=== PATIENT | female | born 1975 | race Caucasian/White ===

== ENCOUNTER → 2025-06-23 | Outpatient (CLI) | payer OTHER, SELFPAY ==
--- NOTE | 2025-06-23 08:06 | BI_ITS ---
EXAM: SCRN MAMM (CAD)W/LG BILAT DATE: 06/23/2025 CLINICAL HISTORY: F, Age 49 y/o , SCREENING TECHNIQUE: SCRN MAMM (CAD)W/LG BILAT COMPARISON: None. This is a baseline study. FINDINGS: TISSUE DENSITY: There are scattered areas of fibroglandular density. Bilateral Breast Mammographic Findings: There are no suspicious masses, suspicious cluster of microcalcifications, architectural distortion or secondary signs of malignancy identified in either breast. Benign round microcalcifications are seen in both breasts. BI/SCRN MAMM (CAD)W/LG BILAT IMPRESSION: Benign screening mammogram. OVERALL FINAL ASSESSMENT BI-RADS 2: BENIGN RECOMMENDATION: Routine annual follow-up in 1 Year A letter with findings and recommendations will be mailed to the patient. Reading Location: [id number]
--- OUTSIDE RECORDS SUMMARY | 2025-06-23 10:40 | XMS RPT_ITS | CCD ---
Author Organization [facility] Inform ion Partnership [facility] Care Team Providers Care Manufacturing Engineer [employer] Name Role Phone SULTANA MATHEW MD Primary Care Physician MARY ANNE FAUST-CALLI Unavailable CASSIE CHIU MD Unavailable HARESH FAUST-PHI AMIN Unavailable Ayo RN, Jenna Unavailable Unavaila alden Yanez RN, Jailyn Unavailable Unavailable Unavailable Unavailable ANA RICHMOND Unavailable VASSAS DO, SHELLIE S Unavailable [phone] VASSAS DO, SHELLIE Attending Unavailable SULTANA MATHEW MD Primary Care Unavailable MARY ANNE FAUST-ALLI Mcfarland Unavailable Unav ailable ALLI NORTH NP Consulting Unavailab le PHI HUTSON NP Primary Care Unavailable PHI HUTSON QA MANAGER Admitting Unavailable PHI HUTSON QA MANAGER Attending Unavailable PROVIDER, UNKNOWN Consulting Unavailable PROVIDER, UNKNOWN Consulting Unavailable CASSIE CHIU Consulting Unavailable VASSAS, SHELLIE Admitting Unavailable VASSAS, SHELLIE Attending Unavailable VASSAS, SHELLIE Primary Care Unavailable PROVIDER, UNKNOWN Consulting Unavailable PROVIDER, UNKNOWN Consulting Unavailable PROVIDER, UNKNOWN Consulting Unavailable VASSAS, SHELLIE Admitting Unavailable ALLI NORTH NP Consulting Unavailab le VASSAS, SHELLIE Attending Unavailable VASSAS, SHELLIE Primary Care Unavailable PROVIDER, UNKNOWN Consulting Unavailable PROVIDER, UNKNOWN Consulting Unavailable PHI HUTSON QA MANAGER Admitting Unavailable PHI HUTSON QA MANAGER Attending Unavailable PHI HUTSON QA MANAGER Primary Care Unavailable VASSAS, SHELLIE Admitting Unavailable ALLI NORTH NP Consulting Unavailab le VASSAS, SHELLIE Attending Unavailable VASSAS, SHELLIE Primary Care Unavailable PROVIDER, UNKNOWN Consulting Unavailable PROVIDER, UNKNOWN Consulting Unavailable VASSAS, SHELLIE Admitting Unavailable ALLI NORTH QA MANAGER Consulting Unavailab le VASSAS, SHELLIE Attending Unavailable VASSAS, SHELLIE Primary Care Unavailable PROVIDER, UNKNOWN Consulting Unavailable PROVIDER, UNKNOWN Consulting Unavailable SULTANA MATHEW MD Primary Care Unavailable WINNIES DO, SHELLIE Attending Unavailable JACQUELYN DE LEON Unavailable [phone] Dacia Hutson Unavailable Unavailable Lashae VSC, Kasandra Referring Unavailable Lashae VSC, Kasandra Attending Unavailable Lashae VSC, Kasandra Primary Care Unavailable Medications Current Medications Medication Drug Class(es) Dates Sig (Normalized) Sig (Original) ALPRAZolam 0.5 mg oral tablet (6 sources) Benzodiazepine Start: 04-30-2025 Xanax 0.5 mg tablet ; 1 (one) tablet po BID x30 days for 30 days Quantity: 60 {Tablet} Refills: 2 Ordered: 30-Apr-2025 HARSHA MORALES Start: 30-Apr-2025 Start: 04-30-2025 Xanax 0.5 mg t ablet ; 1 (one) tablet po BID x30 days for 30 days Quantity: 60 {Tablet} Refills: 2 Ordered: 30-Apr-2025 HARSHA MORALES Start: 30-Apr-2025 Start: 04-30-2025 Xanax 0.5 mg t ablet ; 1 (one) tablet po BID x30 days for 30 days Quantity: 60 {Tablet} Refills: 2 Ordered: 30-Apr-2025 HARSHA MORALES Start: 30-Apr-2025 Start: 03-24-2025 Xanax 0.25 mg tablet ; 1 (one) tablet TID prn anxiety for 30 days Quantity: 90 {Tablet} Refills: 2 Ordered: 24-Mar-2025 HARSHA MORALES Start: 24-Mar-2025 Ascorbic Acid (2 sources) Vitamin C Start: 11-18-2022 Vitamin C qDay , 0 Refill(s) Start Date: 11/18/22 Status: Ordered 24 hr buPROPion hydrochloride 150 mg extended release oral tablet (5 sources) Aminoketone Start: 04-16-2025 take 1 tablet by mouth once daily Wellbutrin XL 150 mg 24 hr tablet, extended release ; 1 (one) tablet po daily for 30 days Quantity: 30 {Tablet} Refills: 2 Ordered: 30-Apr-2025 LASHANDA Yanez Start: 16-Apr-2025 ferrous sulfate 325 mg oral tablet (1 source) Start: 04-12-2023 IRON (ferrous sulfate 325 mg) 65 mg oral tablet Dose : 325 mg = 1 tab(s), Oral, qDay, Take with food., # 60 tab(s), 3 Refill(s) Start Date: 04/12/23 Status: Ordered imiquimod 50 mg/ml topical cream (1 source) Start: 04-12-2023 Aldara 5% topi cinthya cream Apply 1 alyssa, Topical, 2x/Wk, # 12 EA, 1 Refill(s), Pharmacy: [facility], Cream, 160, cm, 04/12/23 8:59:00 EDT, Height, 71.2 Start Date: 04/12/23 Status: Ordered Multivitamin preparation (1 source) Start: 04-12-2023 take 1 tablet by mouth once daily Multivitamin Dose = 1 tab(s), Oral, Daily, 0 Refill(s) Start Date: 04/12/23 Status: Ordered norethindrone acetate 5 mg oral tablet (1 source) Start: 04-12-2023 Aygestin 5 mg oral tablet Dose : 5 mg = 1 tab(s), Oral, qDay, May take 2 a day, # 56 tab(s), 1 Refill(s), Pharmacy: [facility], Menorrhagia Mild anemia, 160, cm, 04/12/23 8:59:00 EDT, Height Start Date: 04/12/23 Status: Ordered progesterone 200 mg oral capsule (1 source) Progesterone Start: 04-12-2023 take 1 capsule by mouth once daily progesterone 200 mg oral capsule TAKE ONE CAPSULE BY MOUTH EVERY DAY FOR FOURTEEN DAYS. START ON THE OF EVERY MONTH Start Date: 04/12/23 Status: Ordered Completed/Discontinued Medications Medication Drug Class(es) Dates Sig (Normalized) Sig (Original) amoxicillin 875 mg / clavulanate 125 mg oral tablet (12 sources) Penicillin-class Antibacterial Start: 05-28-2024 End: 06-07-2024 amoxicillin 875 mg-potassium clavulanate 125 mg tablet ; 1 (one) tablet two times daily for 10 days Quantity: 20 {Tablet} Refills: 0 Ordered: 10-Jun-2024 IVA HUTSON Start: 28-May-2024 End: 07-Jun-2024 Status: Inactive FLUoxetine 10 mg oral tablet (6 sources) Serotonin Reuptake Inhibitor Start: 03-24-2025 End: 04-30-2025 take 1 tablet by mouth once daily FLUoxetine 10 mg tablet ; 1 (one) tablet po daily for 30 days Quantity: 30 {Tablet} Refills: 5 Ordered: 30-Apr-2025 LASHANDA Yanez Start: 24-Mar-2025 End: 30-Apr-2025 Status: Inactive Problems Active Problems Problem Classification Problem Date Documented Date Episodic/Chronic Abdominal pain (20 sources) Left lower quadrant pain; Translations: [Left lower quadrant pain] Episodic Comment on above: CT scan 05/27/24; Ext ensive diverticulosis involving transverse to sigmoid colon; May also represent early diverticulitis. Low attenuation lesion at the fundus of the uterus- likely a fibroid (1.2 x 2 cm) Administrative/socia l admission (20 sources) Patient encounter status; Translations: [Counseling, unspecified] 12-01-2021 Episodic Anxiety disorders (20 sources) Mixed anxiety and depressive disorder; Translations: [Anxiety disorder, unspecified] 03-24-2025 Chronic Comment on above: 03/24/25: GAD7: 15; P HQ9: 20 Conditions associated with dizziness or vertigo (1 source) Dizziness and giddiness; Translations: [Dizziness and giddiness] Episodic Deficiency and other anemia (1 source) Anemia; Translations: [Anemia, unspecified] Episodic Esophageal disorders (20 sources) Gastroesophageal reflux disease without esophagitis; Translations: [Gastro-esophageal reflux disease without esophagitis] 12-01-2021 Chronic Menstrual disorders (1 source) Irregular menstruation, unspecified; Translations: [Irregular menstruation, unspecified] Onset: 07-05-2024 Chronic Other female genital disorders (1 source) Abnormal uterine bleeding; Translations: [Abnormal uterine and vaginal bleeding, unspecified] Chronic Other female genital disorders (3 sources) Other specified abnormal uterine and vaginal bleeding; Translations: [Other specified abnormal uterine and vaginal bleeding] Onset: 08-09-2024 Chronic Other female genital disorders (20 sources) Enlarged uterus; Translations: [Hypertrophy of uterus] 05-24-2024 Episodic Comment on above: Had Pelvic u/s in with no acute abn.Low attenuation lesion at hte fundus of the uterus- likely a fibroid (1.2 x 2 cm) Had Pelvic u/s in with no acute abn.CT 05/29 shows Low attenuation lesion at the fundus of the uterus- likely a fibroid (1.2 x 2 cm) Other screening for suspected conditions (not mental disorders or infectious disease) (1 source) Encounter for screening mammogram for malignant neoplasm of breast; Translations: [Encounter for screening mammogram for malignant neoplasm of breast] Onset: 06-19-2025 Episodic Other skin disorders (1 source) Eruption; Translations: [Rash and other nonspecific skin eruption] Episodic Residual codes; unclassified (20 sources) Family history of cancer of colon; Translations: [Family history of malignant neoplasm of digestive organs] 12-01-2021 Episodic Past or Other Problems Problem Classification Problem Date Documented Da te Episodic/Chronic Unclassified (17 sources) Abdominal Pain, Female - Symptoms include abdominal pain, diarrhea (sometimes) and missed menstrual period (LMP 5-4-24). The pain is located in the mid abdominal area. The pain radiates to the left flank. The patient describes the pain as sharp (at times). Onset was month(s) ago. There is no known event that preceded symptom onset. The symptoms occur intermittently. The patient describes this as worsening. Associated symptoms do not include fever or dysuria. The last menstrual period began 5--24. Note for Abdominal pain: pt usually has regular periods and last one was 5-4-24. Concerned about possible kidney stone. 05-24-2024 Unclassified (17 sources) Abdominal Pain, Female - Symptoms include abdominal pain, while symptoms do not include nausea, vomiting or diarrhea. The pain is located in the mid abdominal area (to the left abd area). The pain radiates to the left flank. Onset was 1 month(s) ago. Note for Abdominal pain: Pt describes the pain a constant dull burning and will get severe attacks. Has a lot of gas and did have one episode where she felt like vomiting. 12-01-2021 Unclassified (14 sources) !Patient notification of lab results - Phi Hutson [facility]-. The test(s) that you had done were/was a CT scan. Note for !Patient notification of lab results : Your CT scan showed that you have a likely fibroid in your uterus, which could be part of the cause of your abdominal pain. For this issue you should see a toggler, and we'd be happy to set up an appointment for you. Additionally, the CT scan showed that you have diverticulosis. Diverticulosis occurs when small defects in the muscle of the wall of the large intestine or colon allow small pockets or pouches (diverticula) to form. Diverticulitis is infection or inflammation of these abnormal pouches. There was a possibility of early diverticulitis (infection/inflammation). If you are still experiencing symptoms, I will send a prescription for antibiotics in for you. Additionally,if you continue to have pain, try eating only a liquid diet for the next 3-5 days, and then you can advance your diet to soft or regular if you can tolerate it. You should also see a cut out worker to have a colonoscopy done to evaluate this further. If you are willing to do this, we will set up the referral for you. 05-28-2024 Unclassified (6 sources) Anxiety - The onset of the anxiety has been acute and has been occurring in a persistent pattern for 2 months. The course has been constant. The anxiety is characterized as expectant dread, sinking feeling and nervousness. Precipitating factors include specific circumstances. The symptoms have been associated with anorexia and nausea, while the symptoms have not been associated with breathlessness, chest pain, diarrhea, dizziness or suicidal thoughts. Note for Anxiety: She notes that her had a seizure about 2 months ago and then again recently. They don't have alot of answers about what is going on. She has started having this shakey feeling, she can't sleep. She has poor appetite. She just doesn't feel well. Her daughter's wedding is at her house in the next 2wks which adds to her stress. She feels she needs something to help the shakiness and help her sleep. She notes she has never had anything like this before. 03-24-2025 Unclassified (4 sources) Anxiety - Note for Anxiety: Pt was seen 5/19/25 and started on Fluoxetine and Xanax. She did not feel well on the Fluoxetine and was switched to Wellbutrin. She was feeling better just on the Xanax so she has not started the Wellbutrin yet. 04-30-2025 Results Test Name Value Interpretation Reference Range Facility Final Surgical Pathology Rep romelia 08-27-2024 Final Surgical Pathology Report . Pathology Reports Accession: Collected Date/Time: Received Date/Time: Pathologist: [id number] 08/23/2024 08:55 EDT 08/26/2024 08:53 EDT MD MOE OLIVEIRA Final Surgical Pathology Report DIAGNOSIS: UTERUS, CERVIX, BILATERAL FALLOPIAN TUBES AND DETACHED RIGHT OVARY: - CERVIX -MILD ACUTE AND CHRONIC INFLAMMATION WITH NABOTHIAN CYSTS - ENDOMETRIUM -SESSILE ENDOMETRIAL POLYP - MYOMETRIUM -LEIOMYOMAS - RIGHT OVARY -LUTEAL CYST AND FOLLICULAR CYSTS - FALLOPIAN TUBE -NO SPECIFIC PATHOLOGIC CHANGES COMMENT: [facility]#[id number] CLINICAL INFORMATION: DUB, UTERINE FIBROID SPECIMEN: A RIGHT OVARY TUBES AND UTERUS GROSS DESCRIPTION: All parts labelled with patient name and [id number] Received in formalin labelled uterus, cervix, bilateral fallopian tubes and detached right ovary , Weight/dimensions - 162 g and measures 11 cm (fundus to cervix), 5.5 cm (cornu to cornu), asymmetrical 5.7 cm (anterior to posterior). Serosa - camejo with anterior and posterior nodularity. Cervix/endocervix - 4 cm in diameter and 5 cm in length. At the anterior peritoneal reflection is an area of scarring. Endometrium - triangular-shaped endometrial cavity measuring 2.5 x 3.5 cm, endometrium lining is remarkable for an anterior endometrial polyp measuring 0.6 x 0.5 cm. Myometrium - camejo-pink measuring up to 3 cm with multiple white whorled well-circumscribed subserosal and intramural nodules ranging from 1 x 1 x 1 cm up to 1.8 x 1.8 x 1.8 cm. Right fallopian tube- 4 x 0.6 cm Right ovary - partially collapsed camejo-batres ovary measuring 3 x 2.2 x 1.5 cm, cut surface appears unremarkable. Left fallopian tube - 4 x 0.5 cm RS-7 Cassette Summary: A1 - Cervix A2 - Anterior endomyometrium A3 - Posterior endomyometrium A4 - Anterior and posterior white whorled nodule A5 - Right fallopian tube A6 - Right ovary A7 - Left fallopian tube Maria R [place], Pathologists' Family Readiness Support Assistant (ASCP) Performed by MARIA R CAMPOS MICROSCOPIC DESCRIPTION: The microscopic examination is performed, except in the case of Gross Only. Pathology Reports Accession: Collected Date/Time: Received Date/Time: Pathologist: [id number] 08/23/2024 08:55 EDT 08/26/2024 08:53 EDT MD ROXANNE MOE Electronically Signed by Pathology Report verified by [facility] MOE OLIVEIRA MD Sign out Date: 08/27/2024 11:17 Performing Lab: [facility], [address] [place] [address] Pathology Dept Disclaimer If ancillary studies were utilized, the following Laboratory Developed Test (LDT) disclaimer will apply: Under CLIA requirements, [facility] is qualified to perform high complexity testing. For all ancillary stains, positive and negative controls stain appropriately. Performance characteristics of immunohistochemical and chromogenic in-situ hybridization tests have been determined by [facility]. These tests are used for clinical purposes, They should not be regarded as investigational or for research. Normal [facility] HEMATOCRITon 08-23-2024 Hematocrit (Bld) [Volume fraction] 34.0 % Normal 34.0 - 46.0 % [facility], [employer] [facility], [employer]. Work Phone: Comment on above: Performed By: #### 2 [id number] #### [facility],[address] [place], [place] [id number] HEMOGLOBINon 08-23-2024 Hemoglobin (Bld) [Mass/Vol] 11.0 g/dL Abnormal 12.0 - 16.0 g/dL [facility], [employer].; [employer] [facility] [employer], [employer]. Work Phone: Comment on above: Performed By: #### 2 [id number] #### [facility],[address] [place] [address] No Panel Informationon 08-23 Observation duration YES Normal [facility] [employer] [facility]. Work Phone: UR Negative Normal [facility]. Work Phone: URINEon 08-23-2024 Beta HCG ( test) Ql (U) Negative Normal NEGATIVE [facility] Comment on above: Performed By: #### 2 [id number] #### [facility],[address] [place] [address] EXTERNAL QC DONE? YES Normal [facility] Comment on above: Performed By: #### 2 [id number] #### [facility],[address] [place] [address] INTERNAL QC PASS Normal [facility].; [facility]. Work Phone: Comment on above: Performed By: #### 2 [id number] #### [facility],[address] [place], [place] [id number] BMP with eGFRon 08-09-2024 AGE 48 years Normal [facility] Comment on above: Performed By: #### 2 [id number] #### [facility],[address] [place] [address] Anion gap [Moles/Vol] 11 mmol/L Normal 10 - 2 0 mmol/L [facility].; [facility]. Work Phone: Comment on above: Performed By: #### 2 [id number] #### [facility],[address] [place] [address] BMP with eGFR Normal [facility] Comment on above: Result Comment: BASI C METABOLIC PANEL Performed By: #### 2 08772 #### [facility],[address] [place] [address] Calcium [Mass/Vol] 9.0 mg/dL Normal 8.5 - 10. 1 mg/dL [facility].; [facility]. Work Phone: Comment on above: Performed By: #### 2 64048 #### [facility],[address] [place] [address] Chloride [Moles/Vol] 104 mmol/L Normal 98 - 10 7 mmol/L [facility], [employer]. Work Phone: Comment on above: Performed By: #### 2 53898 #### [facility],[address] [place] [address]651 CO2 [Moles/Vol] 24.0 mmol/L Normal 21.0 - 32.0 mmol/L [facility], [employer]. Work Phone: Comment on above: Performed By: #### 2 47939 #### [address] [address] Creatinine [Mass/Vol] 0.59 mg/dL Normal 0.55 - 1.02 mg/dL [facility], [employer]. Work Phone: Comment on above: Performed By: #### 2 70141 #### [facility],[address] [place] [address] GFR/1.73 sq M.predicted among non-blacks MDRD (S/P/Bld) [Vol rate/Area] mL/min/{1.73_m2} Normal 60 - 999 [facility] Comment on above: Performed By: #### 2 08516 #### [facility],[address] [place] [address] Result Comment: ACCO RDING TO THE NATIONAL KIDNEY DISEASE EDUCATION PROGRAM(NKDE), A NORMAL eGFR IS A VALUE GREATER THAN OR EQUAL TO 60 ML/MIN/1.73 SQ METERS. CHRONIC KIDNEY DISEASE: <60mL/MIN/1.73 SQ METERS KIDNEY FAILURE: <15mL/MIN/1.73 SQ METERS THIS TEST SHOULD ONLY BE USED FOR PATIENTS 18 YEARS OF AGE AND OLDER. Glucose [Mass/Vol] 73 mg/dL Abnormal 74 - 106 mg/dL [facility], [employer].; [facility], [employer] Work Phone: Comment on above: Performed By: #### 2 99399 #### [facility],[address] [place] [address] Potassium [Moles/Vol] 3.3 mmol/L Abnormal 3.5 - 5.1 mmol/L [facility], [facility].; [place] - [facility], [facility] Work Phone: Comment on above: Performed By: #### 2 [id number] #### [facility],[address] [place] [address] Sodium [Moles/Vol] 136 mmol/L Normal 136 - 145 mmol/L [facility], [facility].; [facility], [employer] Work Phone: Comment on above: Performed By: #### 2 74676 #### [facility],[address] [place] [address]051 Urea nitrogen [Mass/Vol] 9 mg/dL Normal 7 - 18 mg/dL [facility], [facility].; [facility], [employer] Work Phone: Comment on above: Performed By: #### 2 [id number] #### [facility],[address] [place] [address]168 CBC + DIFFon 08-09-2024 Baso # 0.03 x10EE3/UL Normal 0.00 - 0.10 [facility] Comment on above: Performed By: #### 2 [id number] #### [address] [address] Basophils/100 WBC (Bld) 0.7 % Normal 0.0 - 2.0 % [facility], [facility].; [facility], [employer] Work Phone: Comment on above: Performed By: #### 2 76135 #### [facility],[address] [place] [address]15 CBC + DIFF Normal [facility] Comment on above: Result Comment: CBC- COMPLETE BLOOD COUNT Performed By: #### 2 62688 #### [facility],[address] [place] [address]900 EO # 0.12 x10EE3/UL Normal 0.00 - 0.50 [facility] Comment on above: Performed By: #### 2 53892 #### [facility],[address] [place] [address]140 Eosinophils/100 WBC (Bld) 2.7 % Normal 0.0 - 7.0 % [facility], [facility], [facility] Work Phone: Comment on above: Performed By: #### 2 42957 #### [place] [id number] Erythrocyte distribution width (RBC) [Ratio] 13.4 % Normal 12.0 - 15.6 % [facility], [facility] [place] [facility], [employer] Work Phone: Comment on above: Performed By: #### 2 [id number] #### [address] [address] Hematocrit (Bld) [Volume fraction] 36.0 % Normal 34.0 - 46.0 % [facility], [facility] [place] - [facility], [facility] Work Phone: Comment on above: Performed By: #### 2 04375 #### [facility],[address] [place] [address] Hemoglobin (Bld) [Mass/Vol] 11.9 g/dL Abnormal 12.0 - 16.0 g/dL [facility], [facility].; [facility], [facility] Work Phone: Comment on above: Performed By: #### 2 08171 #### [facility],[address] [place] [address] Lymph # 1.62 x10EE3/UL Normal 0.80 - 2.80 [facility] Comment on above: Performed By: #### 2 51194 #### [facility],[address] [place] [address] Lymphocytes/100 WBC (Bld) 38.2 % Normal 20.0 - 45.0 % [facility], [employer]. Work Phone: Comment on above: Performed By: #### 2 63330 #### [place] [address] MANUAL DIFF N/A Normal [facility].; [employer] [facility], [employer]. Work Phone: Comment on above: Performed By: #### 2 64574 #### [facility],[address] [place] [address] MCH (RBC) [Entitic mass] 28 pg Normal 27 - 33 pg [facility] [employer] [facility], [employer]. Work Phone: Comment on above: Performed By: #### 2 08202 #### [place] [address] MCHC 33 X10 3 Normal 32 - 36 [facility] Comment on above: Performed By: #### 2 50591 #### [place] [id number] MCV (RBC) [Entitic vol] 86 fL Normal 80 - 99 fL [facility], [employer]. Work Phone: Comment on above: Performed By: #### 2 48804 #### [place] [address] [place] # 0.23 x10EE3/UL Normal 0.20 - 1.00 [facility] Comment on above: Performed By: #### 2 81144 #### [facility],[address] [place] [address] MONOS % 5.5 % Normal 0.0 - 10.0 [facility] Comment on above: Performed By: #### 2 82556 #### [facility],[address] [place] [address] Morphology Félix (Bld) [Interp] N/A Normal [facility].; [facility], [facility]. Work Phone: Comment on above: Performed By: #### 2 83827 #### [facility],[address] [place] [address] Neut # 2.24 x10EE3/UL Normal 1.50 - 7.10 [facility] Comment on above: Performed By: #### 2 12521 #### [facility],[address] [place], [place] [id number] Neutrophils/100 WBC (Bld) 52.9 % Normal 46.0 - 76.0 % [facility].; [facility], [facility]. Work Phone: Comment on above: Performed By: #### 2 74587 #### [address] [address] PLATELET 195 x10EE3/UL Normal 150 - 450 [facility] Comment on above: Performed By: #### 2 77504 #### [facility],[address] [place] [address] Platelet mean volume (Bld) [Entitic vol] 8.8 fL Normal 6.6 - 10.5 fL [facility].; [facility], [facility]. Work Phone: Comment on above: Result Comment: AUTO MATED DIFFERENTIAL Performed By: #### 2 44537 #### [facility],[address] [place] [address] RBC 4.20 x 10EE6/UL Normal 4.10 - 5.30 [facility] Comment on above: Performed By: #### 2 53053 #### [facility],[address] [place] [address] WBC 4.2 x 10EE3/UL Low 4.5 - 10.8 [facility] Comment on above: Performed By: #### 2 30382 #### [facility],[address] [place] [address] Laboratory - Chemistry and C hemistry - challengeon 08-09-2024 GFR/1.73 sq M.predicted among blacks MDRD (S/P/Bld) [Vol rate/Area] mL/min/{1.73_m2} Normal 60 - 999 {ML/MINUTE} [employer] [facility] [employer] [facility] [employer] [facility]. Work Phone: GFR/1.73 sq M.predicted MDRD (S/P/Bld) [Vol rate/Area] mL/min/{1.73_m2} Normal 60 - 999 {ML/MINUTE} [employer] [facility].; [employer] [facility] [employer] [facility]. Work Phone: Laboratory - Hematology and Cell countson 08-09-2024 Basophils (Bld) [#/Vol] 0.03 {x10EE3/UL} Normal 0.00 - 0.10 {x10EE3/UL} [employer] [facility] [employer] [facility]. Work Phone: Eosinophils (Bld) [#/Vol] 0.12 {x10EE3/UL} Normal 0.00 - 0.50 {x10EE3/UL} [employer] [facility] [employer]. Work Phone: Lymphocytes (Bld) [#/Vol] 1.62 {x10EE3/UL} Normal 0.80 - 2.80 {x10EE3/UL} [facility]. Work Phone: MCHC (RBC) [Mass/Vol] 33 {X10_3} Normal 32 - 3 6 {X10_3} [facility]. Work Phone: Monocytes (Bld) [#/Vol] 0.23 {x10EE3/UL} Normal 0.20 - 1.00 {x10EE3/UL} [facility].; [facility]. Work Phone: Monocytes/100 WBC (Bld) 5.5 % Normal 0.0 - 10.0 % [facility].; [facility]. Work Phone: Neutrophils (Bld) [#/Vol] 2.24 {x10EE3/UL} Normal 1.50 - 7.10 {x10EE3/UL} [facility]. Work Phone: Platelets (Bld) [#/Vol] 195 {x10EE3/UL} Normal 150 - 450 {x10EE3/UL} [facility]. Work Phone: RBC (Bld) [#/Vol] 4.20 {x_10EE6/UL} Normal 4.10 - 5.30 {x_10EE6/UL} [facility].; [facility]. Work Phone: WBC (Bld) [#/Vol] 4.2 {x_10EE3/UL} Abnormal 4.5 - 10.8 {x_10EE3/UL} [facility], [facility]. Work Phone: No Panel Informationon 08-09 AGE 48 {years} Normal [facility], [facility] Work Phone: BMP with eGFR Normal [facility], [facility] Work Phone: CBC + DIFF Normal [facility].; [facility], [facility] Work Phone: Final Surgical Pathology Rep romelia 07-10-2024 Final Surgical Pathology Report . Pathology Reports Accession: Collected Date/Time: Received Date/Time: Pathologist: [id number] 07/05/2024 10:41 EDT 07/09/2024 09:54 EDT WYATT RODRÍGUEZ MD Final Surgical Pathology Report DIAGNOSIS: ENDOMETRIAL CURETTINGS: - SMALL BENIGN ENDOMETRIAL POLYP - BACKGROUND ENDOMETRIUM WITH DISORDERED PROLIFERATIVE FEATURES, SEE COMMENT Comment: In areas, the background endometrium shows glandular architectural distortion; the possibility of early simple endometrial hyperplasia without atypia cannot be excluded. Follow-up and rebiopsy recommended. No evidence of malignancy. CLINICAL INFORMATION: IRREGULAR MENSES Procedure: ENDOMETRIAL BX SPECIMEN: A ENDOMETRIUM GROSS DESCRIPTION: All parts labelled with patient name and [id number] Received in formalin labeled undesignated are multiple camejo-pink and hemorrhagic tissue fragments aggregating 4.3 x 1.4 x 0.9 cm. TS-3 Tiffanie Duff, Grossing Glaze Carrier/ Dr. Dante Magdaleno, Pathologist Performed by Tiffanie Duff MICROSCOPIC DESCRIPTION: The microscopic examination is performed, except in the case of Gross Only. Electronically Signed by Pathology Report verified by [facility] WYATT RODRÍGUEZ Sign out Date: 07/10/2024 09:14 Performing Lab: [facility], [address] [place] [address] Pathology Dept Disclaimer If ancillary studies were utilized, the following Laboratory Developed Test (LDT) disclaimer will apply: Under CLIA requirements, [facility] is qualified to perform high complexity testing. For all ancillary stains, positive and negative controls stain appropriately. Performance characteristics of immunohistochemical and chromogenic in-situ hybridization tests have been determined by [facility]. These tests are used for clinical purposes, They should not be regarded as investigational or for research. Normal [facility] ([place]) CT ABDOMEN/PELVIS Won 2023 CT ABDOMEN/PELVIS [place] [address] Patient: JAKOB HUTSON Phone#: : [phone] Age: 48 Gender: F Pt. Type: Out Account: [id number] Location: Ordering: PHI HUTSON Exam Date: 05/27/2024/14:32 Family Phys: Charge Code: [id number] Physician: Mellette Order #: [id number] Dose#: 12.00 PROCEDURE: CT ABDOMEN/PELVIS WITH CONTRAST COMPARISON: None. INDICATIONS: Abdominal pain, acute. TECHNIQUE: After obtaining the patient's consent, CT images were created with non-ionic intravenous contrast and oral contrast material. All CT scans at this facility use dose modulation, iterative reconstruction, and/or weight based dosing when appropriate to reduce radiation dose to as low as reasonably achievable. IV CONTRAST: Omnipaque 350,80ml TOTAL DOSE: 12.00 CTDIvol(mGy) FINDINGS: LIVER: There is a cyst in the left lobe measuring 1.9 x 2.2 cm. Low-attenuation adjacent to the falciform ligament nonspecific but most often represents focal fatty infiltration. No enlargement, atrophy, or significant focal lesion. BILIARY: Gallbladder is present. PANCREAS: Normal. No lesion, fluid collection, ductal dilatation, or atrophy. SPLEEN: Normal. No enlargement or focal lesion. KIDNEYS: Kidneys enhance and excrete contrast symmetrically. No hydronephrosis. ADRENALS: Normal. No mass or enlargement. AORTA/VASCULAR: No aortic aneurysm. RETROPERITONEUM: Normal. No mass or adenopathy. BOWEL/MESENTERY: There is diverticulosis of the transverse, descending and sigmoid colon. There there is mild stranding surrounding the distal descending colon. No free fluid. No free air. No loculated fluid collection. No bowel obstruction or dilatation. No significant stool burden. Oral contrast is present in the stomach and small bowel. The appendix is unremarkable in size. ABDOMINAL WALL: Small fat containing umbilical hernia URINARY BLADDER: Normal. No visible focal wall thickening, lesion, or calculus. PELVIC NODES: Normal. No adenopathy. Continued Report - Page 2 of 2 Patient: JAKOB HUTSON Phone#: : 1975 Age: 48 Gender: F Pt. Type: Out Account: [id number] Location: Ordering: PHI HUTSON Exam Date: 05/27/2024/14:32 Family Phys: Charge Code: [id number] Physician: Mellette Order #: [id number] Dose#: 12.00 PELVIC ORGANS: Low-attenuation lesion at the fundus of the uterus most likely represents a fibroid, measures 1.2 x 2.0 cm. There is a physiologic cyst in the right ovary measuring 3.9 x 2.3 cm. BONES: Normal. No bony lesion or fracture. LUNG BASES: Normal. No visible pulmonary or pleural disease. OTHER: Negative. CONCLUSION: 1. Extensive diverticulosis involving the transverse to sigmoid colon. Mild stranding adjacent to the distal descending colon. In the appropriate clinical setting may represent early diverticulitis. This report was communicated by telephone to Dr. Reyes Chiu at the dictation time shown below. Dictated by: Francoise Javed MD on 05/27/2024 at 17:13 Approved by: Francoise Javed MD on 05/27/2024 at 17:29 Normal [facility] CBC + DIFFon 05-24-2024 Baso # 0.04 x10EE3/UL Normal 0.00 - 0.10 [facility] Comment on above: Performed By: #### 2 87039 #### [place] [address] Basophils/100 WBC (Bld) 0.7 % Normal 0.0 - 2.0 % [facility], [facility].; [facility], [facility]. Comment on above: Performed By: #### 2 67617 #### [place] [address] CBC + DIFF Normal [facility] Comment on above: Result Comment: CBC- COMPLETE BLOOD COUNT Performed By: #### 2 87074 #### [facility],[address] [place] [address] EO # 0.19 x10EE3/UL Normal 0.00 - 0.50 [facility] Comment on above: Performed By: #### 2 59647 #### [place] [id number] Eosinophils/100 WBC (Bld) 3.7 % Normal 0.0 - 7.0 % [facility] Comment on above: Performed By: #### 2 49846 #### [place] [address] Erythrocyte distribution width (RBC) [Ratio] 13.4 % Normal 12.0 - 15.6 % [facility] Comment on above: Performed By: #### 2 42480 #### [place] [address] Hematocrit (Bld) [Volume fraction] 37.5 % Normal 34.0 - 46.0 % [facility] Comment on above: Performed By: #### 2 05512 #### [place] [address] Hemoglobin (Bld) [Mass/Vol] 12.8 g/dL Normal 12.0 - 16.0 g/dL [facility] Comment on above: Performed By: #### 2 39842 #### [address] [address] Lymph # 1.70 x10EE3/UL Normal 0.80 - 2.80 [facility] Comment on above: Performed By: #### 2 14643 #### [place] [id number] Lymphocytes/100 WBC (Bld) 32.8 % Normal 20.0 - 45.0 % [facility] Comment on above: Performed By: #### 2 05289 #### [facility],[address] [place] [address] MANUAL DIFF N/A Normal [facility].; [facility], [facility]. Comment on above: Performed By: #### 2 76751 #### [facility],[address] [place] [address] MCH (RBC) [Entitic mass] 29 pg Normal 27 - 33 pg [facility], [facility].; [facility], [facility]. Comment on above: Performed By: #### 2 78975 #### [place] [address] MCHC 34 X10 3 Normal 32 - 36 [facility] Comment on above: Performed By: #### 2 93126 #### [place] [address] MCV (RBC) [Entitic vol] 84 fL Normal 80 - 99 fL [facility].; [facility], [facility]. Comment on above: Performed By: #### 2 41951 #### [place] [address] [place] # 0.35 x10EE3/UL Normal 0.20 - 1.00 [facility] Comment on above: Performed By: #### 2 61198 #### [place] [address] MONOS % 6.8 % Normal 0.0 - 10.0 [facility] Comment on above: Performed By: #### 2 42785 #### [place] [address] Morphology Félix (Bld) [Interp] N/A Normal [facility].; [facility], [facility]. Comment on above: Performed By: #### 2 99522 #### [place] [address] Neut # 2.89 x10EE3/UL Normal 1.50 - 7.10 [facility] Comment on above: Performed By: #### 2 39469 #### [address] [address] Neutrophils/100 WBC (Bld) 55.9 % Normal 46.0 - 76.0 % [facility], [facility].; [facility], [facility] Comment on above: Performed By: #### 2 79835 #### [address] [address] PLATELET 178 x10EE3/UL Normal 150 - 450 [facility] Comment on above: Performed By: #### 2 03797 #### [address] [address] Platelet mean volume (Bld) [Entitic vol] 8.9 fL Normal 6.6 - 10.5 fL [facility], [facility].; [facility], [facility] Comment on above: Result Comment: AUTO MATED DIFFERENTIAL Performed By: #### 2 97303 #### [address] [address] RBC 4.45 x 10EE6/UL Normal 4.10 - 5.30 [facility] Comment on above: Performed By: #### 2 94092 #### [address] [address] WBC 5.2 x 10EE3/UL Normal 4.5 - 10.8 [facility] Comment on above: Performed By: #### 2 54010 #### [address] [address] CMP with eGFRon 05-24-2024 AGE 48 years Normal [facility] Comment on above: Performed By: #### 2 63165 #### [address] [address] Albumin [Mass/Vol] 4.0 g/dL Normal 3.4 - 5.0 g/dL [facility] Comment on above: Performed By: #### 2 78855 #### [place] [address] Albumin/Globulin [Mass ratio] 1.3 {ratio} Normal 0.9 - 1.6 [facility] Comment on above: Performed By: #### 2 84709 #### [place] [address] ALK PHOS 46 U/L Normal 46 - 116 U/L [facility], [facility].; [facility], [facility] Comment on above: Performed By: #### 2 76909 #### [place] [address] ALT [Catalytic activity/Vol] 16 U/L Normal 16 - 63 U/L [facility], [facility].; [facility], [facility] Comment on above: Performed By: #### 2 40860 #### [place] [address] Anion gap [Moles/Vol] 13 mmol/L Normal 10 - 2 0 mmol/L [facility], [facility].; [facility], [facility] Comment on above: Performed By: #### 2 17780 #### [place] [address] AST [Catalytic activity/Vol] 15 U/L Normal 13 - 39 U/L [facility], [facility].; [facility], [facility] Comment on above: Performed By: #### 2 08403 #### [place] [address] B/C RATIO 13 ratio Normal 0 - 30 [facility] Comment on above: Performed By: #### 2 75653 #### [place] [address] Bilirubin [Mass/Vol] 0.4 mg/dL Normal 0.2 - 1 .0 mg/dL [facility].; [facility], [facility]. Comment on above: Performed By: #### 2 66362 #### [address] [address] Calcium [Mass/Vol] 9.5 mg/dL Normal 8.5 - 10. 1 mg/dL [facility].; [facility], [facility] Comment on above: Performed By: #### 2 63779 #### [address] [address] Chloride [Moles/Vol] 103 mmol/L Normal 98 - 10 7 mmol/L [facility].; [facility], [facility]. Comment on above: Performed By: #### 2 16472 #### [address] [address] CMP with eGFR Normal [facility] Comment on above: Result Comment: COMP REHENSIVE METABOLIC PANEL Performed By: #### 2 07441 #### [address] [address] CO2 [Moles/Vol] 27.0 mmol/L Normal 21.0 - 32.0 mmol/L [facility].; [facility], [facility] Comment on above: Performed By: #### 2 13443 #### [address] [address] Creatinine [Mass/Vol] 0.60 mg/dL Normal 0.55 - 1.02 mg/dL [facility].; [facility], [facility]. Comment on above: Performed By: #### 2 13933 #### [address] [address] GFR/1.73 sq M.predicted among non-blacks MDRD (S/P/Bld) [Vol rate/Area] mL/min/{1.73_m2} Normal 60 - 999 [facility] Comment on above: Performed By: #### 2 82477 #### [address] [address] Result Comment: ACCO RDING TO THE NATIONAL KIDNEY DISEASE EDUCATION PROGRAM(NKDE), A NORMAL eGFR IS A VALUE GREATER THAN OR EQUAL TO 60 ML/MIN/1.73 SQ METERS. CHRONIC KIDNEY DISEASE: <60mL/MIN/1.73 SQ METERS KIDNEY FAILURE: <15mL/MIN/1.73 SQ METERS THIS TEST SHOULD ONLY BE USED FOR PATIENTS 18 YEARS OF AGE AND OLDER. Globulin (S) [Mass/Vol] 3.2 g/dL Normal 1.5 - 3.8 g/dL [facility], [facility].; [facility], [employer]. Comment on above: Performed By: #### 2 17348 #### [address] [address] Glucose [Mass/Vol] 85 mg/dL Normal 74 - 106 mg/dL [facility], [facility].; [facility], [facility] Comment on above: Performed By: #### 2 52544 #### [address] [address] Potassium [Moles/Vol] 4.4 mmol/L Normal 3.5 - 5.1 mmol/L [facility], [facility].; [facility], [facility] Comment on above: Performed By: #### 2 30145 #### [address] [address] Protein [Mass/Vol] 7.2 g/dL Normal 6.4 - 8.2 g/dL [facility], [facility].; [facility], [facility] Comment on above: Performed By: #### 2 72914 #### [address] [address] Sodium [Moles/Vol] 139 mmol/L Normal 136 - 145 mmol/L [facility], [facility].; [facility], [employer]. Comment on above: Performed By: #### 2 02353 #### [facility],[address] [place] [address] Urea nitrogen [Mass/Vol] 8 mg/dL Normal 7 - 18 mg/dL [facility], [facility].; [facility], [facility] Comment on above: Performed By: #### 2 91792 #### [facility],[address] [place] [address] Laboratory - Chemistry and C hemistry - challengeon 05-24-2024 Albumin [Mass/Vol] 1.3 g/dL Normal 0.9 - 1.6 [facility], [facility].; [facility], [facility] Beta HCG ( test) Ql (U) Negative Normal [facility], [facility].; [facility], [facility] Bilirubin Ql (U) Negative Normal [facility], [facility].; [facility], [facility] GFR/1.73 sq M.predicted among blacks MDRD (S/P/Bld) [Vol rate/Area] mL/min/{1.73_m2} Normal 60 - 999 {ML/MINUTE} [facility] GFR/1.73 sq M.predicted MDRD (S/P/Bld) [Vol rate/Area] mL/min/{1.73_m2} Normal 60 - 999 {ML/MINUTE} [facility] Ketones Ql (U) Negative Normal [facility], [facility].; [facility], [facility] pH (U) 7.0 [pH] Normal [facility], [facility].; [facility], [facility] Specific gravity (U) [Rel density] 1.005 Normal [facility], [facility].; [facility], [facility] Urea nitrogen/Creatinine [Mass ratio] 13 {ratio} Normal 0 - 30 {ratio} [facility] Laboratory - Hematology and Cell countson 05-24-2024 Basophils (Bld) [#/Vol] 0.04 {x10EE3/UL} Normal 0.00 - 0.10 {x10EE3/UL} [facility].; [facility], [facility] Eosinophils (Bld) [#/Vol] 0.19 {x10EE3/UL} Normal 0.00 - 0.50 {x10EE3/UL} [facility], [facility].; [facility], [facility] Hemoglobin Ql (U) Negative Normal [facility].; [facility], [facility] Lymphocytes (Bld) [#/Vol] 1.70 {x10EE3/UL} Normal 0.80 - 2.80 {x10EE3/UL} [facility], [facility].; [facility], [facility]. MCHC (RBC) [Mass/Vol] 34 {X10_3} Normal 32 - 3 6 {X10_3} [facility].; [facility], [facility]. Monocytes (Bld) [#/Vol] 0.35 {x10EE3/UL} Normal 0.20 - 1.00 {x10EE3/UL} [facility].; [facility], [facility]. Monocytes/100 WBC (Bld) 6.8 % Normal 0.0 - 10.0 % [facility]; [facility], [facility] Neutrophils (Bld) [#/Vol] 2.89 {x10EE3/UL} Normal 1.50 - 7.10 {x10EE3/UL} [facility], [facility].; [facility], [facility]. Platelets (Bld) [#/Vol] 178 {x10EE3/UL} Normal 150 - 450 {x10EE3/UL} [facility].; [facility], [facility]. RBC (Bld) [#/Vol] 4.45 {x_10EE6/UL} Normal 4.10 - 5.30 {x_10EE6/UL} [facility], [facility].; [facility]. WBC (Bld) [#/Vol] 5.2 {x_10EE3/UL} Normal 4.5 - 10.8 {x_10EE3/UL} [facility].; [employer] [facility], [employer]. Laboratory - Specimen inform ationon 05-24-2024 Appearance (U) CLEAR Normal [facility] [employer] [facility].; [employer] [facility] [employer] [facility], [employer] Color (U) YELLOW Normal [facility] [employer] [facility].; [employer] [facility] [employer] [facility], [employer] Laboratory - Urinalysison Glucose Test strip (U) [Mass/Vol] Negative Normal [facility] [employer] [facility].; [employer] [facility] Leukocyte esterase Test strip Ql (U) Negative Normal [facility] [employer] [facility].; [employer] [facility] [employer] [facility], [employer] Nitrite Ql (U) Negative Normal [facility] [employer] [facility].; [employer] [facility] Protein Ql (U) Negative Normal [facility] [employer] [facility].; [employer] [facility] [employer] [facility], [employer] No Panel Informationon 05-24 AGE 48 {years} Normal [facility] [employer] [facility].; [employer] [facility] [employer] [facility], [facility]. CBC + DIFF Normal [facility].; [employer] [facility] [employer] [facility], [employer] CMP with eGFR Normal [facility] [employer] [facility].; [employer] [facility] [facility], [employer]. UA - ODOR Negative Normal [facility].; [employer] [facility] [facility], [employer] UA - UROBILIGEN 0.2 Normal [employer] [facility].; [employer] LABORATORYOrdered By: SYSTEM SYSTEM on 04-12-2023 Ferritin [Mass/Vol] 21.0 ng/mL Invalid Interpretation Code 8.0 - 252.0 ng/mL AO ADM SS LABORATORYOrdered By: Linda Rajan on 04-12-2023 Hematocrit (Bld) [Volume fraction] 39.9 % Invalid Interpretation Code 37.0 - 47.0 % AO Workflow SS Hemoglobin (Bld) [Mass/Vol] 13.2 G/dL Invalid Interpretation Code 12.0 - 16.0 G/dL AO Workflow SS LABORATORYOrdered By: Sherry Burrell on 11-18-2022 Basophil, Absolute 0.0 103/mcL Invalid Interpretation Code 0.0 - 0.2 10^3/mcL AO Workflow SS Basophils/100 WBC (Bld) 0.7 % Invalid Interpretation Code 0.0 - 2.5 % AO Workflow SS Eosinophil, Absolute 0.1 103/mcL Invalid Interpretation Code 0.0 - 0.4 10^3/mcL AO Workflow SS Eosinophils/100 WBC (Bld) 1.4 % Invalid Interpretation Code 0.0 - 7.0 % AO Workflow SS Erythrocyte distribution width (RBC) [Ratio] 15.0 % Invalid Interpretation Code 11.5 - 14.5 % AO Workflow SS Hematocrit (Bld) [Volume fraction] 34.7 % Invalid Interpretation Code 37.0 - 47.0 % AO Workflow SS Hemoglobin (Bld) [Mass/Vol] 11.4 G/dL Invalid Interpretation Code 12.0 - 16.0 G/dL AO Workflow SS Lymphocyte, Absolute 1.9 103/mcL Invalid Interpretation Code 0.8 - 3.9 10^3/mcL AO Workflow SS Lymphocytes/100 WBC (Bld) 30.9 % Invalid Interpretation Code 10.0 - 50.0 % AO Workflow SS MCH (RBC) [Entitic mass] 25.9 pg Invalid Interpretation Code 27.0 - 31.2 pg AO Workflow SS MCHC 32.8 G/dL Invalid Interpretation Code 33.0 - 37.0 G/dL AO Workflow SS MCV (RBC) [Entitic vol] 78.9 fL Invalid Interpretation Code 80.0 - 94.0 fL AO Workflow SS Monocyte, Absolute 0.4 103/mcL Invalid Interpretation Code 0.2 - 1.0 10^3/mcL AO Workflow SS Monocytes/100 WBC (Bld) 6.7 % Invalid Interpretation Code 1.7 - 13.0 % AO Workflow SS Neutrophil, Absolute 3.6 103/mcL Invalid Interpretation Code 2.9 - 6.2 10^3/mcL AO Workflow SS Neutrophils/100 WBC (Bld) 60.3 % Invalid Interpretation Code 37.0 - 80.0 % AO Workflow SS Platelet mean volume (Bld) [Entitic vol] 9.2 fL Invalid Interpretation Code 7.4 - 10.4 fL AO Workflow SS Platelets (Bld) [#/Vol] 225 103/mcL Invalid Interpretation Code 130 - 400 10^3/mcL AO Workflow SS RBC (Bld) [#/Vol] 4.40 106/mcL Invalid Interpretation Code 4.20 - 5.40 10^6/mcL AO Workflow SS WBC (Bld) [#/Vol] 6.0 103/mcL Invalid Interpretation Code 4.6 - 10.8 10^3/mcL AO Workflow SS LABORATORYOrdered By: SYSTEM SYSTEM on 11-18-2022 TSH Qn 2.97 m[IU]/L Invalid Interpretation Code 0.36 - 3.74 mcIU/mL AO ADM SS Vital Signs Date Time Vital Sign Value Performing Clinician Monalisa jeffrey 04-30-2025 09:08-0400 Body weight 67.13 kg [facility] 04-30-2025 09:08-0400 Diastolic blood pressure 66 mm[Hg] Jail[facility] [employer] [facility]. Comment on above: Patient Position: Sitting; Cuff Location : Left Arm; Cuff Size: Large 04-30-2025 09:08-0400 Heart rate 67 /min Jailyn Yanez RN [facility] [employer] [facility]. Comment on above: Pattern: Regular 04-30-2025 09:08-0400 Systolic blood pressure 100 mm[Hg] Jailyn Yanez RN [facility] [employer] [facility]. Comment on above: Patient Position: Sitting; Cuff Location : Left Arm; Cuff Size: Large 03-24-2025 13:29-0400 Body weight 68.95 kg Dacia [facility]. 03-24-2025 13:29-0400 Diastolic blood pressure 85 mm[Hg] Dacia [facility]. Comment on above: Patient Position: Sitting; Cuff Location : Left Arm; Cuff Size: Large 03-24-2025 13:29-0400 Heart rate 83 /min Dacia [facility]. Comment on above: Pattern: Regular 03-24-2025 13:29-0400 Systolic blood pressure 121 mm[Hg] Dacia Hutson [facility] [employer] [facility], [employer]. Comment on above: Patient Position: Sitting; Cuff Location : Left Arm; Cuff Size: Large 05-24-2024 09:59-0400 Body temperature 98 [degF] Jenna Rollins RN [facility], [employer]. Comment on above: Method: Oral 05-24-2024 09:59-0400 Body weight 72.12 kg Jenna Rollins RN [facility], [employer] 05-24-2024 09:59-0400 Diastolic blood pressure 75 mm[Hg] Jenna Rollins [facility], [employer]. Comment on above: Patient Position: Sitting; Cuff Location : Left Arm; Cuff Size: Large 05-24-2024 09:59-0400 Heart rate 46 /min Jenna Rollins RN [facility], [employer]. Comment on above: Pattern: Regular 05-24-2024 09:59-0400 Systolic blood pressure 129 mm[Hg] Jenna Rollins [facility], [employer] Comment on above: Patient Position: Sitting; Cuff Location : Left Arm; Cuff Size: Large 12-01-2021 11:17-0500 Body temperature 98.8 [degF] Jailyn Yanez [facility], [employer]. Comment on above: Method: Oral 12-01-2021 11:17-0500 Body weight 68.95 kg Jailyn Yanez RN [facility], [employer] 12-01-2021 11:17-0500 Diastolic blood pressure 83 mm[Hg] Jailyn [facility]ane[facility], [employer] Comment on above: Patient Position: Sitting; Cuff Location : Left Arm; Cuff Size: Large 12-01-2021 11:17-0500 Heart rate 49 /min Jailyn Yanez RN [employer] [facility] [employer] [facility] Comment on above: Pattern: Regular 12-01-2021 11:17-0500 Inhaled oxygen concentration 21 % Jailyn Yanez RN [facility].; [employer] [facility] Comment on above: Room air 12-01-2021 11:17-0500 SaO2% (BldA) [Mass fraction] 99 % Jailyn Yanez RN [employer] [facility].; [employer] [facility] 12-01-2021 11:17-0500 Systolic blood pressure 123 mm[Hg] Jailyn Yanez RN [employer] [facility] [employer] [facility] Comment on above: Patient Position: Sitting; Cuff Location : Left Arm; Cuff Size: Large Encounters Encounter Date Encounter Type Care Provider Facility Start: 06-23-2025 ambulatory Kasandra Bhardwaj [facility] Faci lity:[facility] Start: 04-30-2025 Review ALLI SMITH OPTOMETRY ASSISTANT-C [employer] [facility] Start: 04-30-2025 End: 04-30-2025 Office outpatient visit 10 minutes ALLI NORTH OPTOMETRY ASSISTANT-C [facility] Start: 04-16-2025 End: 04-16-2025 Medication Refill/Order ALLI NORTH OPTOMETRY ASSISTANT-C [facility] Start: 03-24-2025 End: 03-24-2025 Historical Summary ALLI NORTH OPTOMETRY ASSISTANT-C [facility] Start: 03-24-2025 End: 03-24-2025 Office outpatient visit 10 minutes ALLI ELIASP-C [facility] Start: 08-23-2024 End: 08-23-2024 Historical Summary ALLI NORTH OPTOMETRY ASSISTANT-C [employer] [facility] Start: 08-23-2024 End: 08-24-2024 Evaluation and management of inpatient [facility] Start: 08-09-2024 End: 08-09-2024 ambulatory CASSIE CHIU [facility] Start: 07-26-2024 End: 07-26-2024 [facility] Start: 07-07-2024 ambulatory SHELLIE HAMEED DO Facil ity:A Start: 07-05-2024 End: 07-05-2024 ambulatory BERNE MARCIE [facility] Start: 06-04-2024 End: 06-04-2024 Transition of Care ALLI NORTH OPTOMETRY ASSISTANT-C Work Phone: [employer] Start: 05-28-2024 End: 05-28-2024 Medication Refill/Order ALLI NORTH OPTOMETRY ASSISTANT-C Work Phone: [employer] Start: 05-28-2024 End: 05-28-2024 Patient encounter procedure ALLI NORTH OPTOMETRY ASSISTANT-C Work Phone: [employer] Start: 05-27-2024 End: 05-27-2024 [facility] Start: 05-24-2024 End: 05-24-2024 ambulatory PHI BEARD [facility] Start: 05-24-2024 End: 05-24-2024 Lab Only ALLI NORTH OPTOMETRY ASSISTANT-C Work Phone: [employer] Start: 05-24-2024 End: 05-24-2024 Office outpatient visit 10 minutes ALLI NORTH OPTOMETRY ASSISTANT-C Work Phone: [employer] Start: 04-12-2023 End: 04-12-2023 Patient encounter procedure SULTANA MATHEW MD [facility] Start: 11-18-2022 End: 11-18-2022 Patient encounter procedure SULTANA MATHEW MD [facility] Start: 12-09-2021 End: 12-09-2021 Historical Summary ALLI NORTH OPTOMETRY ASSISTANT-C [facility] Start: 12-01-2021 End: 12-01-2021 Office outpatient visit 10 minutes ALLI NORTH OPTOMETRY ASSISTANT-C Work Phone: [facility]. Procedures Date Procedure Procedure Detail Performing Clinician Start: 04-30-2025 End: 04-30-2025 Dischrg meds reconciled w/current med list JACQUELYN BONELABACH OPTOMETRY ASSISTANT-C Work Phone: Start: 03-24-2025 End: 03-24-2025 Collj & interpj physiol data min 30 min ea 30 d JACQUELYN ANDREW OPTOMETRY ASSISTANT-C Work Phone: Start: 08-23-2024 End: 08-23-2024 Hysterectomy CASSIE CHIU MD Work Phone: Comment on above: Dr. Hameed Start: 05-28-2024 End: 05-28-2024 Ct abdomen & pelvis w/contrast material PHI HUTSON OPTOMETRY ASSISTANT-BC Work Phone: Start: 12-09-2021 End: 12-09-2021 Us pelvic nonobstetric real-time image complete ALLI NORTH OPTOMETRY ASSISTANT-C Work Phone: Start: 12-01-2021 End: 12-01-2021 Dischrg meds reconciled w/current med list ALLI NORTH OPTOMETRY ASSISTANT-C Work Phone: Start: 11-06-2012 section SULTANA MATHEW MD Start: 11-06-2008 section SULTANA MATHEW MD Start: 11-06-2006 Dilation and curettage SULTANA MATHEW MD Start: 11-06-2005 section SULTANA MATHEW MD Start: 11-06-2002 section SULTANA MATHEW MD Start: 11-06-1999 section SULTANA MATHEW MD CT Scan of Abdomen a nd Pelvis PHI ELIASP- Work Phone: Comment on above: Extensive diverticul osis involving transverse to sigmoid colon; May also represent early diverticulitis. Low attenuation lesion at the fundus of the uterus- likely a fibroid (1.2 x 2 cm) Plan of Treatment Date Care Activity Detail Author Start: 04-30-2025 Follow-up encounter Medical; R E CHECK OR FOLLOW-UP MEDICAL ILLNESS - [employer] Start: 30-Apr-2025 09:00-04:00 HARSHA MORALES Appointment Request [employer] Start: 05-24-2024 Ct abdomen & pelvis w/contrast material CT ABDOMEN AND PELVIS WITH IV AND ORAL CONTRAST (13256) Start: 24-May-2024 Intent pickrset; [employer]. Start: 05-24-2024 Blood count complete auto&auto difrntl wbc CBC, PLATELETS & AUT DIFF ([id number]) Start: 24-May-2024 10:22-04:00 Request pickrset; [employer]. Start: 05-24-2024 Comprehensive metabo lic panel CMP - COMPREHENSIVE METABOLIC PANEL (33057) Start: 24-May-2024 10:22-04:00 Request pickrset; [employer]. Start: 12-01-2021 Patient Education GERD Indicat ion: GERD without esophagitis Start: 01-Dec-2021 Instruction Type: Patient Education pickrset; [employer] Payers Date Payer Category Payer Self-pay 2025 Unknown 2024 Unknown [id number] 1975 Unknown [id number] 1975 Unknown [id number] Unknown [id number] Social History Date Type Detail Facility Start: 11-17-2022 Tobacco smoking status Never s moked tobacco (finding) [facility] Sex Assigned At Sex [facility] Alcohol Use: Alcohol Use: ; N o Alcohol Use. [facility] Tobacco use: Tobacco use: ; N ever smoker. [facility] Work Phone: Evaluation + Plan note Note Date & Type Note Facility Evaluation + Plan note Future Appointments Appointment Date:12/16/2022 09:15:00 AM Scheduled Provider:SULTANA MATHEW MD Location: [facility] Appointment Type: Office Procedure [facility] Evaluation + Plan note Laboratory Note Date & Type Note Facility Evaluation + Plan note Future Appointments Appointment Date:08/14/2023 09:00:00 AM Scheduled Provider:SULTANA MATHEW MD Location: [facility] Appointment Type: OV Future Scheduled TestsComplete Blood Count 03/12/23 [facility] Hospital course Narrative Note Date & Type Note Facility Hospital course Narrative No data available for this section [facility] Hospital Discharge instructions Note Date & Type Note Facility Hospital Discharge instructions No data available for this section [facility] Progress note Note Date & Type Note Facility Progress note No data available for this section [facility] Summary Purpose Family History No Family History Records FoundNo Family History Records FoundNo Family History Records FoundNo Family History Records Found Advance Directives No Advanced Directives Records FoundNo Advanced Directives Records FoundNo Advanced Directives Records FoundNo Advanced Directives Records Found Additional Source Comments Care Team (unrecognized sect ion and content) Care Team Personnel Name: SULTANA MATHEW MD 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 Provider Member Role: Primary Care Physician Address: Address: [address] [place] [address] Care Team Related Persons Name: DEXTER HUTSON Patient Care team informatio n (unrecognized section and content) Care Team Personnel Name: SULTANA MATHEW MD 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 Provider Member Role: Primary Care Physician Address: Address: [address] [place] [address] Care Team Related Persons Name: DEXTER HUTSON INFORMATION SOURCE (unrecogn ized section and content) DATE CREATED AUTHOR 07/11/2024 [facility] ([place] DATE CREATED AUTHOR AUTHOR'S ORGANIZ ATION 08/27/2024 [facility] DATE CREATED AUTHOR AUTHOR'S ORGANIZ ATION 08/29/2024 [facility] DATE CREATED AUTHOR AUTHOR'S ORGANIZ ATION 06/21/2025 [facility] FOR RECORDS PERTAINING TO PATIENTS WHO ARE OR HAVE BEEN ENROLLED IN A CHEMICAL DEPENDENCY/SUBSTANCEABUSE PROGRAM, SOME INFORMATION MAY BE OMITTED. This clinical summary was aggregated from multiple sources. Caution should be exercised in using it in the provision of clinical care. This summary normalizes information from multiple sources, and as a consequence, information in this document may materially change the coding, format and clinical context of patient data. In addition, data may be omitted in some cases. CLINICAL DECISIONS SHOULD BE BASED ON THE PRIMARY CLINICAL RECORDS. [employer] [facility]. provides no warranty or guarantee of the accuracy or completeness of information in this document.
== END | disposition home or self-care (01) ==
PROVIDERS: PCP Family Medicine; Referring Provider Family Medicine; Visit Provider Family Medicine
DX: Z12.31 Encounter for screening mammogram for malignant neoplasm of breast (principal)
CPT/HCPCS: 77063; 77067